=== PATIENT | male | born 1990 | race Caucasian/White ===

== ENCOUNTER 2016-11-02 11:34 | Emergency (ER) | payer SELFPAY ==
[~2016-11-02] VITALS: Ht 182.9 cm; Wt 108.9 kg
== END 2016-11-02 12:35 | disposition short-term general hospital (02) ==
LOC: ER 11:34
PROC: 0HQEXZZ Repair Left Lower Arm Skin, External Approach (ICD-10-PCS; principal; 2016-11-02)
DX: S51.812A Laceration without foreign body of left forearm, initial encounter (principal); F17.210 Nicotine dependence, cigarettes, uncomplicated; W26.8XXA Contact with other sharp object(s), not elsewhere classified, initial encounter